=== PATIENT | female | born 1960 | race Caucasian/White ===

== ENCOUNTER → 2017-01-16 | Outpatient (CLI) | payer OTHER ==
[~2017-01-16] MED LIST: ASPIRIN81 MG PO; CALTRATE-600 W600 MG PO; DAILY FIBER0.52 GM PO; MAXZIDE PO; MICRO-K DPS10 MEQ PO; PRILOSEC DPS20 MG PO
== END | disposition home or self-care (01) ==
LOC: PTH.S 07:33
DX: Z01.818 Encounter for other preprocedural examination (principal); E66.01 Morbid (severe) obesity due to excess calories; Z79.2 Long term (current) use of antibiotics

== ENCOUNTER 2017-01-22 05:21 | Observation (INO) | payer OTHER ==
[~2017-01-22] VITALS: Ht 165.1 cm; Wt 121.3 kg
[2017-01-23] MEDS ORDERED: MICRO-K DPS10 MEQ PO (20:54)
[2017-01-23] MEDS ORDERED: ASPIRIN81 MG PO (20:54)
[2017-01-23] MEDS ORDERED: CALTRATE-600 W600 MG PO (20:55)
[2017-01-23] MEDS ORDERED: PRILOSEC DPS20 MG PO (20:55)
[2017-01-23] MEDS ORDERED: DAILY FIBER0.52 GM PO (20:55)
[2017-01-23] MEDS ORDERED: MAXZIDE PO (20:55)
--- NOTE | 2017-02-17 13:39 | OR ---
ADMIT: 01/22/2017 RM/LOC: [address] [facility] MR#: [id number] [address] [address] [place] [address] Operative/Delivery Room Report SEX: F AGE: 56 : 1960 SURGERY DATE: 01/22/2017 SURGEON: Goldy Pena MD [employer] SPECIALIST: Michelle Staples MD. OPERATION: Laparoscopic-assisted vaginal hysterectomy with laparoscopic- assisted bilateral salpingo-oophorectomy. PREOPERATIVE DIAGNOSES: Menometrorrhagia, unresponsive to conservative management with continued postmenopausal irregular bleeding and early second- degree uterine descensus and pending path report. FINAL DIAGNOSIS: Menometrorrhagia, unresponsive to conservative management with continued postmenopausal irregular bleeding and early second-degree uterine descensus and pending path report. Left ovary slightly adherent to the left pelvic wall. DESCRIPTION OF PROCEDURE: The patient was taken to the operating room, placed in supine position initially with intubation and anesthesia administered and then eventually placed in lithotomy position and then being prepped and draped in the usual manner. Apple catheter was inserted in the bladder and a VCare manipulator was used to place in the uterus for manipulation of the uterus. I had to dilate the cervix from a small uterine dilator up to a third larger size. Then we were able to insert the VCare device. Dr. Staples had begun the insufflation making a small incision in the subumbilical area with insertion of the Veress needle with continuous flow of carbon dioxide gas begun. Must mention that local anesthesia with Xylocaine and epi was used before making the incision. The scope was inserted and visualization of the contents of the abdomen was attempted, but the two ports had to be inserted over near the iliac crest for insertion of manipulators. These were 5 mm ports, as was the subumbilical port. Careful evaluation of the pelvic contents revealed no evidence of endometriosis and the uterus appeared to be small. The right ovary was somewhat atrophic as expected, left was same, but it was closely adherent to the lateral pelvic wall. Attempts at visualizing the peristalsis of the ureters, both ureters was attempted for an extended period of time with careful visualization of the pulsating uterine artery, but we still could not see peristalsis of any structure that may represent the ureter. The Thunderbeat device was inserted and with cautery and then cautery cutting current, we mobilized the tube and ovary from the infundibulopelvic ligament, also mobilizing the tube and utero-ovarian ligament from the mesosalpinx, eventually getting down to where we cauterized and cut the round ligament and then continued down along the broad ligament to where the bladder reflection began. Then we dissected the bladder flap away from the lower uterine segment. There was a moderate amount of bleeding from the infundibulopelvic ligament blood vessels even though they were cauterized before cutting, but eventually this was carefully cauterized again and hemostasis was obtained. We then converted to the vaginal approach with the cervix grasped with two Schilling tenaculums, noted to come down to approximately 1.5 cm from the introitus. ADMIT: 01/22/2017 RM/LOC: [address] [facility] MR#: [id number] [address] [place]OS[place] [address] [place] [address] Operative/Delivery Room Report SEX: F AGE: 56 : 1960 Circular incision made around the cervix at the bladder reflection and entering into the posterior cul-de-sac. Uterosacral ligaments were cross clamped, incised, and ligated followed by cross-clamping the cardinal ligament area with incision and ligation. The anterior cul-de-sac was opened mainly with blunt dissection and the right angle retractor was inserted. The uterine vessels were cross clamped, incised, and ligated followed by cross-clamping a small remnant of the broad ligament with incision, ligation and eventually we removed the uterus in this fashion. The pelvic peritoneum was closed using a pursestring suture of 0 Vicryl. The uterosacral ligaments had been stick tied and we inadvertently cut the left suture, but on the right side we were able to use it to stick tie the uterosacral ligaments to the vaginal mucosa for additional support. Pelvic peritoneum was closed with a pursestring closure picking up the posterior cul-de-sac, peritoneum, and vaginal fascia posteriorly to add additional support to any potential enterocele site. The vagina then was closed using interrupted [id number] 0 Vicryl suture with the final closure accomplished using the pelvic peritoneal closure stitch anchoring this to the vaginal mucosa to add elevation of the apex of the vagina and obliterate any space. At this time, we went back up above and visualization of the pelvic area through these three ports that were present revealed some clots with some possible oozing from the left infundibulopelvic ligament. We irrigated and seemed to form some accumulation of bloody fluid and so this was re-cauterized carefully. The area was irrigated and pictures were taken of the postop site as well as of the appendix. Must mention the liver had been visualized before the procedure started. The two grasping forceps were removed from the ports, pneumoperitoneum reduced. Evaluation of the pelvic contents after slight insufflation again revealed no active bleeding aside and this pneumoperitoneum was reduced and the operative scope was removed with the port also removed. Subcuticular closure of the three incisions with 3-0 Vicryl was accomplished. Adequate hemostasis was present. The procedure then was terminated. The patient left the operating room in satisfactory condition. Must mention that she did lose approximately 300 mL of blood, none of which was replaced. She left the operating room in satisfactory condition. Goldy Pena MD/ lara JOB #: [id number] CC: Goldy Pena, Attending Physician Rich Shelley, Family Physician
== END 2017-01-23 13:24 | disposition home or self-care (01) ==
LOC: EDSTATUS 05:21 → 6PED 05:24 → WOR 05:24 → SSS 07:35 → 6PED 10:10 → SSS 15:04 → 6PED 01-23 13:24
PROVIDERS: ADMIT Obstetrics & Gynecology
PROC: 0UT9FZZ Resection of Uterus, Via Natural or Artificial Opening With Percutaneous Endoscopic Assistance (ICD-10-PCS; principal; 2017-01-22)
PROC: 0UT2FZZ Resection of Bilateral Ovaries, Via Natural or Artificial Opening With Percutaneous Endoscopic Assistance (ICD-10-PCS; principal; 2017-01-22)
PROC: 0UT7FZZ Resection of Bilateral Fallopian Tubes, Via Natural or Artificial Opening With Percutaneous Endoscopic Assistance (ICD-10-PCS; principal; 2017-01-22)
PROC: 0UTC7ZZ Resection of Cervix, Via Natural or Artificial Opening (ICD-10-PCS; principal; 2017-01-22)
DX: D25.9 Leiomyoma of uterus, unspecified (principal); N80.0 Endometriosis of uterus; N72 Inflammatory disease of cervix uteri; E66.9 Obesity, unspecified; Z79.899 Other long term (current) drug therapy; Z79.82 Long term (current) use of aspirin